=== PATIENT | female | born 1950 | race Caucasian/White ===

== ENCOUNTER 2018-02-14 18:37 | Emergency (ER) | payer MEDICAID, MEDICARE ==
[~2018-02-14] VITALS: Ht 165.1 cm; Wt 87.0 kg
[2018-02-14 19:52] LABS: BASOPHILS # (AUTO) 0.02 x10^3/uL (0-0.1); BASOPHILS % (AUTO) 0 % (0-1); EOSINOPHILS % (AUTO) 0 % (1-7); LYMPHOCYTES # (AUTO) 0.53 x10^3/uL (1-3.4); LYMPHOCYTES % (AUTO) 7 % (22-44); MD NO; MEAN CORPUSCULAR HGB CONC 33.6 g/dL (32.4-35.8); MEAN CORPUSCULAR VOLUME 92.1 fL (80-100); MEAN PLATELET VOLUME 8.2 fL (7.4-10.4); MONOCYTES # (AUTO) 0.34 x10^3/uL (0.2-0.8); MONOCYTES % (AUTO) 5 % (2-9); NEUTROPHILS # (AUTO) 6.35 x10^3/uL (1.8-6.8); NEUTROPHILS % (AUTO) 88 % (42-75); PLATELET COUNT 255 x10^3/uL (130-400); RED BLOOD COUNT 4.42 x10^6/uL (3.82-5.3); RED CELL DISTRIBUTION WIDTH 13.9 % (9.6-15.2)
[2018-02-14 19:59] LABS: INTERNATIONAL NORMALIZED RATIO 1.03 (0.93-1.1); PROTHROMBIN TIME 10.7 Seconds (9.6-11.5)
[2018-02-14 20:01] LABS: ALANINE AMINOTRANSFERASE 24 U/L (12-78); ALBUMIN 3.5 g/dL (3.4-5.0); ANION GAP 9 mmol/L (5-15); CALCIUM 9.1 mg/dL (8.5-10.1); CHLORIDE 102 mmol/L (98-107); CREATININE 0.65 mg/dL (0.55-1.02)
[2018-02-14 20:06] LABS: ALKALINE PHOSPHATASE 119 U/L (45-117); BILIRUBIN,TOTAL 0.3 mg/dL (0.2-1.0); SALICYLATE LEVEL < 1.7 mg/dL (2.8-20.0); TOTAL PROTEIN 7.5 g/dL (6.4-8.2); TROPONIN I < 0.015 ng/mL (0.000-0.045)
[2018-02-14 20:07] LABS: ACETAMINOPHEN < 2 mcg/mL (10-30)
[2018-02-14 20:13] LABS: MICROSCOPIC INDICATED
[2018-02-14 20:30] LABS: CULTURE INDICATED? NO
[2018-02-14] MEDS ORDERED: NALOXONE 1 MG/ML, 2ML ONE (20:52)
[2018-02-14 20:59] LABS: AMPHETAMINE SCREEN, URINE Negative (Negative); BARBITURATE SCREEN, URINE Negative (Negative); BENZODIAZEPINE SCREEN, URINE Negative (Negative); CANNABINOID SCREEN, URINE Negative (Negative); COCAINE SCREEN, URINE Negative (Negative); METHADONE SCREEN, URINE Negative (Negative); OPIATE SCREEN, URINE Negative (Negative)
[2018-02-14 21:00] VITALS: BP 106/55
[2018-02-14] MEDS ORDERED: PLEASE ENTER HEIGHT AND WEIGHT MC SCH (21:00)
[2018-02-14] MEDS ORDERED: PLEASE ENTER ALLERGIES MC SCH (21:00)
[2018-02-14] MEDS ORDERED: NALOXONE 1 MG/ML, 2ML IVPush ONE (21:00)
== END 2018-02-14 21:46 | disposition home or self-care (01) ==
LOC: ED 20:37
DX: R56.9 Unspecified convulsions (principal); E03.9 Hypothyroidism, unspecified; G43.909 Migraine, unspecified, not intractable, without status migrainosus
CPT/HCPCS: 36415; 70450; 71045; 80053; 80307; 80329; 81001; 82140; 84484; 85025; 85610; 87040; 93005; 96374; 99285; J2310; G0480

== ENCOUNTER 2019-10-12 08:55 | Inpatient (IN) | payer MEDICARE, MEDICAID ==
[~2019-10-12] VITALS: Ht 157.5 cm; Wt 79.1 kg
--- NOTE | 2019-10-12 09:56 | NUR ---
Handoff report received from LIDA Joel
[2019-10-12 10:06] LABS: BASOPHILS # (AUTO) 0.01 x10^3/uL (0-0.1); BASOPHILS % (AUTO) 0 % (0-1); EOSINOPHILS % (AUTO) 0 % (1-7); LYMPHOCYTES # (AUTO) 0.69 x10^3/uL (1-3.4); LYMPHOCYTES % (AUTO) 13 % (22-44); MD NO; MEAN CORPUSCULAR HEMOGLOBIN 30.8 pg (27.0-34.8); MEAN CORPUSCULAR HGB CONC 33.6 g/dL (32.4-35.8); MEAN CORPUSCULAR VOLUME 91.9 fL (80-100); MEAN PLATELET VOLUME 7.6 fL (7.4-10.4); MONOCYTES # (AUTO) 0.47 x10^3/uL (0.2-0.8); MONOCYTES % (AUTO) 9 % (2-9); NEUTROPHILS # (AUTO) 4.18 x10^3/uL (1.8-6.8); NEUTROPHILS % (AUTO) 78 % (42-75); PLATELET COUNT 221 x10^3/uL (130-400); RED BLOOD COUNT 4.12 x10^6/uL (3.82-5.3); RED CELL DISTRIBUTION WIDTH 13.9 % (9.6-15.2)
--- NOTE | 2019-10-12 10:06 | NUR ---
Pt assessed, does not appear in distress at this time. Per report, pt is mostly non-verbal, however is communicating some to this RN. O2 titrated to 2.5 L/min. Pt placed on bedpan.
[2019-10-12 10:18] LABS: ALANINE AMINOTRANSFERASE 52 U/L (12-78); ALBUMIN 2.5 g/dL (3.4-5.0); ANION GAP 7 mmol/L (5-15); CHLORIDE 99 mmol/L (98-107); CREATININE 0.55 mg/dL (0.55-1.02)
[2019-10-12 10:24] LABS: D-DIMER (DIC) 1.3 ug/mlFEU (0.00-0.52)
[2019-10-12 10:25] LABS: ALKALINE PHOSPHATASE 58 U/L (45-117); BILIRUBIN,TOTAL 0.5 mg/dL (0.2-1.0); TOTAL PROTEIN 6.6 g/dL (6.4-8.2)
--- NOTE | 2019-10-12 10:30 | NUR ---
Skin breakdown approx 2" noted to silvia
[2019-10-12] MEDS ORDERED: POTASSIUM CHLORIDE 20 MEQ TAB.ER.PRT PO ONE (11:30)
--- NOTE | 2019-10-12 11:44 | NUR ---
Pt information updated by brother Wilmar via phone. Per family member, pt lives at care home called [facility] which has had a number of residents and staff test positive for Covid 19. Per family member, it was reported that Pt is positive.
[2019-10-12] MEDS ORDERED: DOXYCYCLINE 100 MG in DEXTROSE 5% 250 ML IVPB ONE (12:00)
[2019-10-12] MEDS ORDERED: CEFTRIAXONE PMX 1GM/50ML 50 ML IVPB ONE (12:00)
[2019-10-12] MEDS ORDERED: CEFTRIAXONE PMX 1GM/50ML 50 ML ONE (12:17)
[2019-10-12] MEDS: CEFTRIAXONE PMX 2GM/50ML 50 ML IV SCH (12:30)
[2019-10-12] MEDS ORDERED: ACETAMINOPHEN 325 MG TABLET PO PRN (12:30)
[2019-10-12] MEDS ORDERED: ONDANSETRON ODT 4 MG PO PRN (12:30)
[2019-10-12] MEDS ORDERED: ONDANSETRON 2MG/ML, 2ML IVPush PRN (12:30)
--- NOTE | 2019-10-12 12:37 | NUR ---
Pt resting, no distress noted. ABX infusing.
[2019-10-12 12:54] LABS: HCT (SEDRATE) 37.8 % (34.6-47.8)
[2019-10-12] MEDS ORDERED: HEPARIN 25,000 UNITS/250ML PMX 250 ML IV PRN (13:00)
[2019-10-12] MEDS ORDERED: HEPARIN 5,000 UNITS/ML, 1ML IV PRN (13:00)
[2019-10-12] MEDS ORDERED: HEPARIN 5,000 UNITS/ML, 1ML IV ONE (13:00)
[2019-10-12] MEDS ORDERED: POTASSIUM CHLORIDE 20 MEQ TAB.ER.PRT ONE ×2 (13:39→15:20)
[2019-10-12] MEDS ORDERED: HEPARIN 5,000 UNITS/ML, 1ML ONE ×2 (13:39→21:14)
[2019-10-12] MEDS ORDERED: HEPARIN 25,000 UNITS/250ML PMX 250 ML ONE (13:56)
[2019-10-12] MEDS: SODIUM CHLORIDE 0.9% 1,000 ML IV SCH (15:29)
--- NOTE | 2019-10-12 15:38 | NUR ---
Pt resting, more verbal, states "I want to go home". Heparin and NS gtt infusing. Provided with PO fluids.
--- NOTE | 2019-10-12 16:14 | NUR ---
BREAK RN: Patient resting on gurney, respirations even and unlabored. MARIZA RIDER. Call light in reach
--- NOTE | 2019-10-12 17:19 | NUR ---
Pt sleeping, in no distress.
--- NOTE | 2019-10-12 19:24 | NUR ---
Spoke with pt's brother Wilmar, provided with updates. Pt given snack and po fluids.
--- NOTE | 2019-10-12 19:51 | NUR ---
Report provided to LIDA Shcwab
--- NOTE | 2019-10-12 20:21 | NUR ---
Pt appears comfortable, linens and gown changed prior to transfer to floor.
[2019-10-12 21:30] VITALS: BP 110/68
[2019-10-12] MEDS: DOXYCYCLINE 100MG TABLET PO SCH (21:57)
[2019-10-13 01:35] VITALS: BP 93/57
[2019-10-13] MEDS ORDERED: MULT1TAB98 PO (03:11)
[2019-10-13] MEDS ORDERED: CARB1TAB25 PO (03:11)
[2019-10-13] MEDS ORDERED: HYDR12.517 PO (03:11)
[2019-10-13] MEDS ORDERED: LEVE500T53 PO (03:11)
[2019-10-13] MEDS ORDERED: ESLI400T PO (03:11)
[2019-10-13] MEDS ORDERED: CALC1TAB78 PO (03:11)
[2019-10-13] MEDS ORDERED: FAMO-79 PO (03:11)
[2019-10-13] MEDS ORDERED: ASPI81TA45 PO (03:11)
[2019-10-13] MEDS ORDERED: TRAM-47 PO (03:11)
[2019-10-13] MEDS ORDERED: LEVO125T PO (03:11)
[2019-10-13] MEDS ORDERED: ARIP15TA3 PO (03:11)
[2019-10-13 04:15] LABS: BASOPHILS # (AUTO) 0.02 x10^3/uL (0-0.1); BASOPHILS % (AUTO) 0 % (0-1); EOSINOPHILS % (AUTO) 0 % (1-7); LYMPHOCYTES # (AUTO) 1.06 x10^3/uL (1-3.4); LYMPHOCYTES % (AUTO) 20 % (22-44); MD NO; MEAN CORPUSCULAR HEMOGLOBIN 30.5 pg (27.0-34.8); MEAN CORPUSCULAR HGB CONC 33.1 g/dL (32.4-35.8); MEAN CORPUSCULAR VOLUME 92.3 fL (80-100); MEAN PLATELET VOLUME 8.6 fL (7.4-10.4); MONOCYTES # (AUTO) 0.64 x10^3/uL (0.2-0.8); MONOCYTES % (AUTO) 12 % (2-9); NEUTROPHILS # (AUTO) 3.55 x10^3/uL (1.8-6.8); NEUTROPHILS % (AUTO) 67 % (42-75); PLATELET COUNT 151 x10^3/uL (130-400); RED BLOOD COUNT 3.85 x10^6/uL (3.82-5.3)
[2019-10-13 04:16] LABS: ANION GAP 6 mmol/L (5-15); CALCIUM 7.9 mg/dL (8.5-10.1); CHLORIDE 102 mmol/L (98-107)
[2019-10-13 04:20] LABS: CREATININE 0.39 mg/dL (0.55-1.02)
[2019-10-13 08:10] VITALS: BP 108/85
[2019-10-13] MEDS: DOXYCYCLINE 100MG TABLET PO SCH ×2 (09:18→20:27)
[2019-10-13] MEDS: ZINC SULFATE 220 MG CAPSULE PO SCH (11:32)
[2019-10-13] MEDS: ASCORBIC ACID 500 MG TABLET PO SCH ×3 (11:32→20:27)
[2019-10-13] MEDS: ENOXAPARIN 60 MG/0.6 ML SQ SCH (11:32)
[2019-10-13] MEDS: CHOLECALCIFEROL 1,000 UNIT TABLET PO SCH (11:32)
[2019-10-13] MEDS: methylPREDNISolone SOD SUCC 40 MG/ML IV SCH ×2 (11:32→20:27)
[2019-10-13] MEDS: CEFTRIAXONE PMX 2GM/50ML 50 ML IV SCH (12:43)
[2019-10-13 13:14] VITALS: BP 114/65
[2019-10-13] MEDS: SODIUM CHLORIDE 0.9% 1,000 ML IV SCH (13:30)
[2019-10-13 20:00] VITALS: BP 96/56
[2019-10-13] MEDS: MELATONIN 5 MG TABLET PO SCH (20:27)
[2019-10-14 02:00] VITALS: BP 98/54
[2019-10-14] MEDS: SODIUM CHLORIDE 0.9% 1,000 ML IV SCH (05:53)
[2019-10-14 07:04] VITALS: BP 101/62
[2019-10-14 07:11] LABS: C-REACTIVE PROTEIN, QUANT 5.7 mg/dL (0.02-0.49)
[2019-10-14] MEDS: methylPREDNISolone SOD SUCC 40 MG/ML IV SCH ×2 (08:54→20:31)
[2019-10-14] MEDS: DOXYCYCLINE 100MG TABLET PO SCH ×2 (08:54→20:31)
[2019-10-14] MEDS: CHOLECALCIFEROL 1,000 UNIT TABLET PO SCH (08:55)
[2019-10-14] MEDS: ZINC SULFATE 220 MG CAPSULE PO SCH (08:55)
[2019-10-14] MEDS: ASCORBIC ACID 500 MG TABLET PO SCH ×3 (08:55→20:31)
[2019-10-14] MEDS: ENOXAPARIN 60 MG/0.6 ML SQ SCH (09:47)
[2019-10-14] MEDS: CEFTRIAXONE PMX 2GM/50ML 50 ML IV SCH (12:22)
[2019-10-14 12:26] VITALS: BP 101/62
[2019-10-14 20:00] VITALS: BP 98/60
[2019-10-14] MEDS: MELATONIN 5 MG TABLET PO SCH (20:31)
[2019-10-15 02:00] VITALS: BP 90/57
[2019-10-15] MEDS: ENOXAPARIN 60 MG/0.6 ML SQ SCH (08:59)
[2019-10-15] MEDS: DOXYCYCLINE 100MG TABLET PO SCH ×2 (09:00→21:13)
[2019-10-15] MEDS: ASCORBIC ACID 500 MG TABLET PO SCH ×3 (09:00→21:13)
[2019-10-15] MEDS: ZINC SULFATE 220 MG CAPSULE PO SCH (09:00)
[2019-10-15] MEDS: CHOLECALCIFEROL 1,000 UNIT TABLET PO SCH (09:00)
[2019-10-15 09:16] VITALS: BP 92/56
[2019-10-15] MEDS: methylPREDNISolone SOD SUCC 40 MG/ML IV SCH ×2 (11:26→21:14)
[2019-10-15] MEDS ORDERED: DOXY100T PO (11:32)
[2019-10-15] MEDS ORDERED: ASCO500T9 PO (11:32)
[2019-10-15] MEDS ORDERED: CHOL10003 PO (11:32)
[2019-10-15] MEDS ORDERED: PRED20TA PO (11:32)
[2019-10-15] MEDS ORDERED: ZINC220C7 PO (11:32)
[2019-10-15 13:52] VITALS: BP 99/53
[2019-10-15] MEDS: CEFTRIAXONE PMX 2GM/50ML 50 ML IV SCH (14:13)
[2019-10-15 19:50] VITALS: BP 84/48
[2019-10-15] MEDS: MELATONIN 5 MG TABLET PO SCH (21:13)
[2019-10-16 01:00] VITALS: BP 102/58
[2019-10-16 06:26] LABS: BASOPHILS % (AUTO) 1 % (0-1); EOSINOPHILS % (AUTO) 0 % (1-7); LYMPHOCYTES # (AUTO) 0.61 x10^3/uL (1-3.4); LYMPHOCYTES % (AUTO) 7 % (22-44); MD NO; MEAN CORPUSCULAR HEMOGLOBIN 30.1 pg (27.0-34.8); MEAN CORPUSCULAR HGB CONC 32.9 g/dL (32.4-35.8); MEAN CORPUSCULAR VOLUME 91.6 fL (80-100); MEAN PLATELET VOLUME 7.3 fL (7.4-10.4); MONOCYTES # (AUTO) 0.55 x10^3/uL (0.2-0.8); MONOCYTES % (AUTO) 6 % (2-9); NEUTROPHILS # (AUTO) 7.96 x10^3/uL (1.8-6.8); NEUTROPHILS % (AUTO) 86 % (42-75); PLATELET COUNT 407 x10^3/uL (130-400); RED BLOOD COUNT 3.77 x10^6/uL (3.82-5.3); RED CELL DISTRIBUTION WIDTH 14.2 % (9.6-15.2)
[2019-10-16 06:38] LABS: ANION GAP 6 mmol/L (5-15); CALCIUM 8.6 mg/dL (8.5-10.1); CHLORIDE 107 mmol/L (98-107); CREATININE 0.61 mg/dL (0.55-1.02)
[2019-10-16 07:22] VITALS: BP 97/57
[2019-10-16] MEDS: DOXYCYCLINE 100MG TABLET PO SCH (08:20)
[2019-10-16] MEDS: ZINC SULFATE 220 MG CAPSULE PO SCH (08:20)
[2019-10-16] MEDS: methylPREDNISolone SOD SUCC 40 MG/ML IV SCH (08:21)
[2019-10-16] MEDS: ENOXAPARIN 60 MG/0.6 ML SQ SCH (08:21)
[2019-10-16] MEDS: CHOLECALCIFEROL 1,000 UNIT TABLET PO SCH (08:21)
[2019-10-16] MEDS: ASCORBIC ACID 500 MG TABLET PO SCH (08:21)
[2019-10-16 08:28] LABS: HCT (SEDRATE) 34.6 % (34.6-47.8)
[2019-10-16] MEDS ORDERED: LEVETIRACETAM 500 MG TABLET PO SCH (10:30)
[2019-10-16] MEDS ORDERED: CARBIDOPA/LEVODOPA 25 MG/100 MG TABLET PO SCH (11:00)
[2019-10-16] MEDS: CEFTRIAXONE PMX 2GM/50ML 50 ML IV SCH (11:25)
[2019-10-16 13:46] VITALS: BP 99/61
== END 2019-10-16 14:22 | disposition home or self-care (01) | DRG 177 ==
LOC: ED 12:16 → EDIP 12:42 → 4NE 21:23
PROVIDERS: ADMIT Internal Medicine; ATTEND Hospitalist
DX: U07.1 COVID-19 (principal); J96.01 Acute respiratory failure with hypoxia; J12.89 Other viral pneumonia; E03.9 Hypothyroidism, unspecified; E87.6 Hypokalemia; G20 Parkinson's disease; G40.909 Epilepsy, unspecified, not intractable, without status epilepticus; G43.909 Migraine, unspecified, not intractable, without status migrainosus; L89.159 Pressure ulcer of sacral region, unspecified stage; Z95.2 Presence of prosthetic heart valve; Q90.9 Down syndrome, unspecified
CPT/HCPCS: 36415; 71045; 80048; 80053; 82728; 83605; 83615; 83735; 83880; 84145; 85025; 85049; 85379; 85384; 85520; 85610; 85651; 85730; 86140; 87040; 93005; 96365; 96366; 96375; 99291; G0378; J0696; J1644; J1650; J7060; J2920; J7030; U0001-CS